=== PATIENT | male | born 1955 | race Caucasian/White ===

== ENCOUNTER → 2017-12-08 | Outpatient (CLI) | payer BC ==
--- NOTE | 2017-12-08 14:22 | DIAGNOSTIC IMAGING REPORT ---
(TESTICULAR) SCROTUM-CONT CLINICAL HISTORY: 62 years-old Male presenting with LEFT TESTICULAR SWELLING. TECHNIQUE: Real-time grayscale and color and spectral Doppler ultrasound imaging of the scrotum was performed. COMPARISON: None. FINDINGS: Right testis: Normal echogenicity and echotexture. Testis measures 4.1 x 2.3 x 3.0 cm. Normal color Doppler flow and arterial and venous waveforms in the testicular parenchyma. Epididymal head normal. No hydrocele. No varicocele. Left testis: Normal echogenicity and echotexture. Testis measures 3.4 x 2.6 x 2.9 cm. Normal color Doppler flow and arterial and venous waveforms in the testicular parenchyma. Enlarged epididymal head and tail. The epididymal tail is hyperemic on color Doppler. 11 mm cyst noted within the epididymal tail, likely cyst or spermatocele. Moderate hydrocele. No varicocele. Symmetric perfusion of the testes. IMPRESSION: 1. Findings consistent with left epididymitis. No current evidence of orchitis. No evidence of testicular torsion. 2. Reactive moderate left hydrocele. Electronically signed by: Gilberto Sanchez M.D. 12/08/2017 2:21 PM Dictated Date/Time: 12/08/2017 2:17 PM
== END | disposition home or self-care (01) ==
LOC: C.ULTRBC 13:35
DX: N50.89 Other specified disorders of the male genital organs (principal); N45.1 Epididymitis

== ENCOUNTER → 2018-01-13 | Outpatient (CLI) | payer BC ==
--- NOTE | 2018-01-13 09:29 | DIAGNOSTIC IMAGING REPORT ---
CHEST 2 VIEWS ROUTINE CLINICAL HISTORY: 62 years-old Male presenting with HYPERTENSION, WENT TO [facility], SEND TO [facility]. TECHNIQUE: PA and lateral views of the chest were obtained. COMPARISON: None. FINDINGS: Cardiomediastinal silhouette normal. Lungs and pleural spaces clear. Osseous structures normal. Upper abdomen normal. IMPRESSION: 1. No acute cardiopulmonary disease. Electronically signed by: Gilberto Sanchez M.D. 01/13/2018 9:28 AM Dictated Date/Time: 01/13/2018 9:28 AM
[2018-01-13 09:45] LABS: BASO % 1.9 %; BASO ABS # 0.11 K/uL (0-0.2); EOS % 4.2 %; EOS ABS # 0.25 K/uL (0-0.5); HEMATOCRIT 45.9 % (42-52); HEMOGLOBIN 16.1 g/dL (14.0-18.0); IG# 0.01 K/uL (0.00-0.02); LYMPH ABS # 1.66 K/uL (1.2-3.4); MEAN CELL VOLUME 90.4 fL (80-100); MEAN CORPUSCULAR HEMOGLOBIN 31.7 pg (25-34); MEAN CORPUSCULAR HGB CONC 35.1 g/dl (32-36); MEAN PLATELET VOLUME 9.9 fL (7.4-10.4); MONO % 10.5 %; MONO ABS # 0.62 K/uL (0.11-0.59); NEUT % 55.2 %; NEUT ABS # 3.28 K/uL (1.4-6.5); PLATELET COUNT 270 K/uL (130-400); RED CELL DISTRIBUTION WIDTH CV 13.2 % (11.5-14.5); RED CELL DISTRIBUTION WIDTH SD 43.7 fL (36.4-46.3); WHITE BLOOD COUNT 5.93 K/uL (4.8-10.8)
[2018-01-13 10:10] LABS: BLOOD UREA NITROGEN 21 mg/dl (7-18); CARBON DIOXIDE 27 mmol/L (21-32); CHOLESTEROL 175 mg/dl (0-200); CREATININE 1.32 mg/dl (0.60-1.40); GLUCOSE 84 mg/dl (70-99); SODIUM 138 mmol/L (136-145)
[2018-01-13 10:21] LABS: LDL CHOLESTEROL CALCULATED 105 mg/dl
== END | disposition home or self-care (01) ==
LOC: C.LAB 08:59
DX: I10 Essential (primary) hypertension (principal)